=== PATIENT | male | born 1985 | race Two or more races ===

== ENCOUNTER 2021-01-03 21:49 | Emergency (ER) | payer SELFPAY ==
[~2021-01-03] VITALS: Ht 172.7 cm; Wt 86.2 kg
[2021-01-04 01:00] VITALS: BP 126/82
== END 2021-01-04 04:23 | disposition home or self-care (01) ==
LOC: ER 21:53 → EDBD 21:53 → ER 01-04 01:56
DX: M25.461 Effusion, right knee (principal)
CPT/HCPCS: 29505; 73562